=== PATIENT | male | born 1970 | race Caucasian/White ===

== ENCOUNTER → 2019-08-26 | Outpatient (CLI) | payer BC, SELFPAY ==
[2019-08-26 12:15] VITALS: BMI 33.5
== END | disposition home or self-care (01) ==
LOC: LABSPEC 14:21
PROVIDERS: PCP Family Medicine; Referring Provider Physician Assistant; Visit Provider Physician Assistant
DX: J02.9 Acute pharyngitis, unspecified (principal)
CPT/HCPCS: 87081

== ENCOUNTER 2024-01-04 12:20 | Emergency (ER) | payer OTHER, SELFPAY ==
[2024-01-04 12:20] VITALS: BP 119/87; PULSE 63; RESP 16; TEMP 36; O2SAT 98; BMI 26.4
--- NOTE | 2024-01-04 12:32 | EDS_ITS ---
<Statement entered by Luly Lang MD - 01/04/24 19:26> I have personally performed a face to face assessment of the patient and have reviewed the MIKEY Note. Patient presents secondary to rash. Patient has a focal round red lesion to the left flank area that he first noted a couple weeks ago but it was very small. The area does itch. It has recently grown in size. He was seen by an online telehealth physician yesterday and given a prescription for a steroid cream which she just picked up but has not yet started using. He raises concern about possible Lyme disease. He does not know of a specific tick bite. Patient sitting upright in bed no acute distress. Head and neck examination unremarkable. Heart is regular rate and rhythm. Lung sounds are clear. Abdomen is soft and nontender. Back examination reveals a round erythematous lesion approximately 12 cm in diameter. No obvious central clearing. No blistering or fluid-filled vesicles. Patient will start using the steroid cream topically. We will also cover him with doxycycline which will cover both cellulitis as well as if this is potentially Lyme. Lyme titer will be sent. Patient and family comfortable with the plan. HPI History of Present Illness Chief Complaint: Rash Narrative Narrative: Patient is a 53-year-old male with no significant medical history presents to the emergency department with concern for rash to his left lower back. Patient noticed some itchy rash that was small a couple weeks ago, in the last week its gotten more pronounced, red and round. Patient did see a online physician yesterday and was given a steroid cream. Patient is mostly concerned about Lyme disease. He denies any other symptoms. He states his itching, however the itching does go away with Benadryl. [facility] Medical History (Updated 01/04/24 @ 12:38 by HASEEB Ndiaye) uvulectomy Home Medications ?Medication ?Instructions ?Recorded ?Last Taken ?Type doxycycline hyclate 100 mg capsule 100 mg PO BID 21 days #42 caps 01/04/24 Unknown Rx Allergy/AdvReac Type Severity Reaction Status Date / Time amoxicillin Allergy Unknown Verified 01/04/24 12:20 Family History Other Adopted Surgical History Diverticulitis Social History (Updated 08/26/19 @ 12:15 by Marquez GARCÍA, PA) Smoking Status: Never smoker alcohol intake: current alcohol intake frequency: 0-2 drinks per day ROS ROS ED ROS Narrative Constitutional: Negative for fever, chills, weight loss, weakness Eyes: Negative for vision loss, vision change, double vision ENT: Negative for any sore throat, ear pain, congestion Cardiovascular: Negative for any chest pain, tightness, palpitations Respiratory: Negative for any cough, sputum production, hemoptysis, dyspnea, dyspnea on exertion, orthopnea Gastrointestinal: Negative for any abdominal pain, nausea, vomiting, diarrhea, constipation, blood in stool, blood in vomit : Negative for any urinary frequency, dysuria, retention, blood in urine Muscle skeletal: Negative for any neck pain, back pain Neurological: Negative for any headache, syncope, dizziness Skin: Negative for any abrasions, lacerations. Positive for rash to the left lower back Psychiatric: Negative for any depression, anxiety, stress, suicidal ideation, homicidal ideation Hematologic: Negative for any excessive bruising, easy bleeding EXAM Physical Exam Narrative Exam Narrative: Vital signs reviewed. HEET: Head normocephalic atraumatic, TMs clear bilaterally. Posterior pharynx is clear, moist mucous membranes. Nares clear bilaterally. Neck: Supple with no lymphadenopathy or tenderness. No signs of meningismus. Cardiac: Regular rate and rhythm no murmurs gallops or rubs, equal peripheral pulses bilaterally. Respiratory: Lungs clear to auscultation bilaterally. No chest tenderness. Abdomen: Soft, nontender, nondistended. No abdominal bruit or pulsatile masses. No hepatosplenomegaly Extremities: No peripheral edema, no signs of gross trauma or deformity. Active full range of motion of all extremities. Neuro: Cranial nerves II through XII intact, no focal neurological deficits. Skin: Clean dry and intact with no purpura, petechiae, vesicles or pustules. Patient has a red raised round rash in a circular fashion to the left flank area. There is no evidence suspect any herpetic lesions. There is no bull's-eye-like rash. There is no evidence of any cellulitis. The rash appears to be 1 large hive. Backs/flank: No CVA tenderness, no midline spinal tenderness, no deformity. Psych: Normal mood and affect. No SI, HI or acute psychosis. Const Vital Signs: 01/04/24 12:20 Temperature 96.8 F L Temperature Source Temporal Pulse Rate 63 Respiratory Rate 16 Blood Pressure 119/87 H Blood Pressure Mean 97 Pulse Ox 98 Oxygen Delivery Method Room Air Positive well nourished and well developed General Appearance ED: well developed MDM MDM Treatment and Re-Evaluation :: Differential diagnosis includes however is not limited to: Lyme disease, contact dermatitis, cellulitis, viral rash Patient appears generally well, patient appears nontoxic, vital signs are stable, presenting to the emergency department with a rash to left lower back. Spoke with the patient at length, there is no significant bull's-eye-like rash. This rash is circular, we will order a Lyme titer. Patient will be treated prophylactically with doxycycline for 21 days. If the patient gets a negative result, he can stop taking the doxycycline after 10 days. He does like and will cover any sort of cellulitis. The patient does have a topical steroids. Instructed return for any worsening symptoms. All questions answered, patient stable for discharge. Discharge Plan Triage Chief Complaint: Rash ED Midlevel Provider: Luis Manuel Denny ED Provider: Luly Lang Dx/Rx/DC Orders Clinical Impression: Rash Instructions: Nonspecific Skin Rash Prescriptions: New doxycycline hyclate 100 mg capsule 100 mg PO BID 21 Days Qty: 42 0RF Primary Care Provider: Jose Key Referrals: Jose Key MD [Primary Care Provider] - Activity Restrictions/Additional Instructions: We are treating you as if you are positive for Lyme. If the Lyme titer comes back negative. You may stop the doxycycline after 10 days. Use the topical steroid that you have. Your also being treated for cellulitis. Print Language: Pashto Disposition Disposition: Home, Self Care
[2024-01-05 09:07] LABS: Lyme Scn Total Ab w/Rflx Negative (Negative)
== END 2024-01-04 12:58 | disposition home or self-care (01) ==
LOC: ED 12:52
PROVIDERS: Nurse Practitioner; Emergency Provider Emergency Medicine; PCP Family Medicine; Visit Provider Emergency Medicine
DX: R21 Rash and other nonspecific skin eruption (principal)
CPT/HCPCS: 86618; 99282